=== PATIENT | female | born 1990 | race Caucasian/White ===

== ENCOUNTER → 2016-04-18 12:56 | Outpatient (CLI) | payer MEDICAID ==
[~2016-04-18 12:56] MED LIST: IBUPROFEN600 MG PO; MEPERIDINE HCL50 MG PO; PRENATAL COMPLE1 TAB PO
[2016-04-21 09:52] VITALS: BMI 30.9
== END | disposition home or self-care (01) ==
LOC: D.LDO 12:56
DX: Z34.90 Encounter for supervision of normal pregnancy, unspecified, unspecified trimester (principal)

== ENCOUNTER 2016-04-21 04:00 | Inpatient (IN) | payer MEDICAID ==
[~2016-04-21] VITALS: Ht 163.8 cm; Wt 83.0 kg
[2016-04-21] MEDS ORDERED: PRENATAL COMPLE1 TAB PO (05:26)
[2016-04-21 05:34] VITALS: BP 118/70; BMI 31.0
[2016-04-21 05:55] LABS: HEMATOCRIT 42.7 % (36.0-48.0); HEMOGLOBIN 14.5 g/dL (12-16); MCH 32.4 pg (26.0-34.0); MCV 95.3 fL (80.0-100.0); MEAN PLATELET VOLUME 10.9 fL (7.4-10.4); RBC 4.48 10x6/uL (4.00-5.40); RDW 13.1 % (11.5-14.5); WBC 10.2 10x3/uL (4.8-10.8)
[2016-04-21 07:02] LABS: APPEARANCE SLT CLOUDY (CLEAR); BACTERIA MANY /hpf (NONE SEEN); BILIRUBIN NEGATIVE (NEGATIVE); COLOR YELLOW (YELLOW); GLUCOSE NEGATIVE (NEGATIVE); KETONE NEGATIVE (NEGATIVE); LEUKOCYTE ESTERASE 1+ (NEGATIVE); MUCUS <1+ /lpf (NONE SEEN); NITRITE NEGATIVE (NEGATIVE); PROTEIN NEGATIVE (NEGATIVE); RED CELLS - URINE RARE /hpf (0-5); UROBILINOGEN NORMAL (NORMAL)
[2016-04-21 09:52] VITALS: Ht 163.8 cm; Wt 83.0 kg
--- NOTE | 2016-04-21 17:27 | NUR ---
PT SITTING UP IN BED. FAMILY MEMBER AT BEDSIDE HOLDING . PT DENIES NEEDS AT THIS TIME. BED LOW. PHONE AND CALL LIGHT IN REACH. SIDE RAILS UP X2.
[2016-04-21 19:07] VITALS: BP 112/57
--- NOTE | 2016-04-21 19:07 | NUR ---
INTO ROOM FOR ASSESSMENT. PT. WITH LAUREN OF ALL EXTREMITIES. STATES PERINEAL AREA WHERE REPAIRS WERE DONE IS BURNING AND ACHING. RATES A 4 OF 10 ON PAIN SCALE. INFORMED PT. OF MEDICATIONS ORDERED. PT. STATES THAT SHE DESIRES MOTRIN AND DEMEROL. FUNDUS FIRM U/2 AND LOCHIA RUBRA MOD. ICE CAP NOTED TO PERINEAL AREA. SALINE LOCK NOTED IN RT WRIST WITHOUT REDNESS NOR EDEMA. BREATH SOUNDS CLEAR AND BOWEL SOUNDS AUDIBLE. INFORMED PT. THAT WOULD RETURN WITH HER PAIN MED AND ALSO GET HER UP TO THE BATHROOM PRIOR TO HER TRANSFER TO A CLEAN ROOM. PT. STATES UNDERSTANDING. FAMILY IN ROOM AT PRESENT.
--- NOTE | 2016-04-21 19:34 | NUR ---
PAIN MEDS GIVEN ORDERED. OFF ORGAN TUNER ELECTRONIC. PT. ASSISTED TO SITTING ON SIDE OF BED. DENIES ANY NUMBNESS IN LOWER EXTREMITIES. PT. STANDING AT SIDE OF BED WITHOUT DIFFICULTY. AMBULATED TO BATHROOM WITHOUT ASSISTANCE. VOIDED AND SELF NOEMI CARE DONE AFTER INSTRUCTIONS. INSTRUCTED ON USE OF EPIFOAM, DERMOPLAST AND TUCKS AND PT. OPTED TO USE ALL. ASSISTED WITH USE. NOEIM PAD AND PANTIES APPLIED. TO WHEELCHAIR AND TRANSFERRED TO [facility].
--- NOTE | 2016-04-21 19:50 | NUR ---
TRANSFERRED INTO ROOM 1278. ORIENTED TO ROOM, CALL SYSTEM, BED CONTROLS AND TEMP. CONTROL. PT. STATES UNDERSTANDING TO ALL. FOB AND FAMILY IN ROOM. PT. COMMENTS THAT BED IS "MUCH SOFTER". FUNDUS FIRM AND LOCHIA RUBRA MOD. SIDE RAILS UP X 2. CALL LIGHT WITHIN REACH. INFORMED PT. WOULD BRING ICE FOR PERINEAL AREA AND EXTRA PILLOWS THAT WERE REQUESTED UPON RETURN TO ROOM .
--- NOTE | 2016-04-21 19:55 | NUR ---
ICE WATER, EXTRA PILLOWS AND ICE CAP FOR PERINEAL AREA PROVIDED. ASSISTED PT. TO POSITION WITH PILLOWS. DENIES FURTHER NEEDS.
--- NOTE | 2016-04-21 20:20 | NUR ---
INTO ROOM TO CHECK ON PT. STATES PERINEAL AREA STILL "FRAZIER SOME". VISITOR AT BEDSIDE HOLDING INFANT.
--- NOTE | 2016-04-21 20:40 | NUR ---
PT. REPORTS THAT DISCOMFORT HAS IMPROVED AND RATES A 2 OF 10 ON PAIN SCALE. HOLDING INFANT AT PRESENT.
--- NOTE | 2016-04-21 22:05 | NUR ---
AT PRESENT. TALKING ON PHONE AND FAMILY IN ROOM. DENIES ANY NEEDS AT THIS TIME.
--- NOTE | 2016-04-21 23:50 | NUR ---
LYING ON BACK WITH HOB AT 30 DEGREES HOLDING . SLEEPING AT PRESENT. ICE WATER PROVIDED. PT. DENIES ANY NEEDS. FOB SLEEPING ON SOFA.
--- NOTE | 2016-04-22 00:45 | NUR ---
AT PRESENT. ICE CAP PROVIDED FOR PERINEAL AREA. FOB LYING ON SOFA. PT. DENIES ANY FURTHER NEEDS. ROOM TEMP. COLD ALTHOUGH PATIENT KEEPING INFANT WELL WRAPPED IN BLANKET.
--- NOTE | 2016-04-22 02:45 | NUR ---
HOLDING . PAIN MED GIVEN ORDERED FOR PAIN PT RATES A 6 OF 10 ON PAIN SCALE. STATES IT IS CRAMPING AND PERINEAL DISCOMFORT. FUNDUS FIRM U/3 AND LOCHIA RUBRA MOD. ICE WATER PROVIDED. FOB SLEEPING ON SOFA.
--- NOTE | 2016-04-22 03:32 | NUR ---
INFANT TO ROOM TO BREASTFEED. BREASTCREAM PROVIDED. REPORTS PAIN 3 OF 10 ON PAIN SCALE.
[2016-04-22 05:14] LABS: RAPID PLASMA REAGIN Non Reactive (Non Reactive)
--- NOTE | 2016-04-22 06:05 | NUR ---
NBN IN ROOM TO TAKE TO NURSERY. PT. AWAKE AND ORIENTED.
[2016-04-22 06:44] LABS: HEMOGLOBIN 13.8 g/dL (12-16); MCH 32.1 pg (26.0-34.0); MCHC 33.7 g/dL (31.0-37.0); MCV 95.3 fL (80.0-100.0); MEAN PLATELET VOLUME 10.6 fL (7.4-10.4); RBC 4.3 10x6/uL (4.00-5.40); RDW 13.1 % (11.5-14.5); WBC 12.6 10x3/uL (4.8-10.8)
--- NOTE | 2016-04-22 07:12 | OP ---
PATIENT NAME: MAYA GALLEGOS MEDICAL RECORD: [id number] :92 LOCATION:[facility] [id number] ADMISSION DATE:04/21/16 SURGEON: BASSAM GÓMEZ MD DATE OF OPERATION: 04/21/2016 Delivery Note The patient pushed to +3 to +4 station. A vacuum was applied to the vertex. Infant was then delivered via gentle traction on the vertex. Shoulder dystocia was encountered and resolved using suprapubic pressure and cutting by midline episiotomy. was thoroughly suctioned, cord doubly clamped and ligated, and the infant handed to the awaiting nursery personnel. Spontaneous delivery of intact-appearing placenta. Uterus manually explored. Episiotomy repaired using 2-0 chromic suture. Delivery was under epidural anesthesia. weighed 9 pounds 10 ounces. Apgars 8 and 9. was moving all extremities well post-delivery. ESTIMATED BLOOD LOSS: 400 cc. COMPLICATIONS: Shoulder dystocia with no sequelae. TRANSINT:[id number] Voice Confirmation ID: [id number] DOCUMENT ID: [id number] BASSAM GÓMEZ MD at 0712 CC: [id number] DICTATION DATE: 04/21/16 1613 COUNTERINTELLIGENCE/HUMINT SPECIALIST: 04/21/162003 ADM IN [facility] [address] [place] [address]
--- NOTE | 2016-04-22 07:30 | NUR ---
PATIENT IS SITTING UP IN HER BED, HOB IN HI FOWLERS. SHE IS CHANGING HER INFANTS DIAPER WITH THE NURSERY NURSE AT THE BEDSIDE. WHEN THEY WERE FINISHED, WE DISCUSSED HER BLEEDING (SMALL TO MODERATE) SHE STATES THAT SHE HAS CHANGED HER PERIPAD 2 OR 3 TIMES THROUGHOUT THE NIGHT. DENIES PASSING CLOTS. HER FF, MIDLINE. HER PERICARE PRODUCTS ARE IN THE RESTROOM, SHE DENIES QUESTIONS ABOUT HER CARE.
--- NOTE | 2016-04-22 08:10 | NUR ---
PATIENT REQUESTS HER DEMEROL AND IBUPROPHEN FOR PAIN THAT SHE IS RATING A 6 TO HER PERIMEUM AND ABDOMINAL CRAMPING. GIVEN. OFFERED TOWELS AND SUPPLIES FOR A SHOWER. SHE DENIED WANTING THEM, SHE WOULD LIKE TO WAIT UNTIL GOING HOME TO SHOWER. ENCOURAGED HER TO LET ME KNOW IF SHE CHANGES HER MIND. VERBALIZED UNDERSTANDING. DENIED NEEDING ANY PERSONAL CARE SUPPLIES AT THIS TIME.
[2016-04-22] MEDS ORDERED: IBUPROFEN600 MG PO (10:00)
[2016-04-22] MEDS ORDERED: MEPERIDINE HCL50 MG PO (10:00)
--- NOTE | 2016-04-22 10:46 | NUR ---
PATIENT RESTING IN HER BED, SEMI FOWLERS. SHE HAS HER BABY NESTLED AGAINST HER BREAST. HE IS SLEEPING. DISCUSSED WAYS TO MAKE HIM UNCOMFORTABLE TO ENCOURAGE HIM TO SUCKLE. SHE STATES THAT HER PERINEAL PAIN REMAINS A 5. SHE STATE SHTAT SHE IS USING HER BETADINE WASH, TUCKS AND DERMABLAST. STATES THAT SHE FEELS THE EPIFOAM WAS BURNING AND SHE DECLINES USING IT ANY LONGER. SHE DENIES NEEDS AT THIS TIME. FOB IS AT THE BEDISDE. MONITORING.
--- NOTE | 2016-04-22 12:13 | NUR ---
PATIENT SITTING UP IN HER BED HER INFANT. SHE IS RATING HER PERINEAL PAIN A 5 STILL AND REQUESTS PAIN MEDICATION AVAILABLE. SHE DENIES OTHER NEEDS. SHE HAS BEEN UP AROUND HER ROOM TO THE RESTROOM. FOB AT THE BEDSIDE, THEY ARE TALKING AND FILLING OUT THE BABY'S PAPERWORK. THEY EXPECT TO GO HOME THIS EVENING. SHE HAS EATEN HER LUNCH. MONITORING.
--- NOTE | 2016-04-22 16:49 | NUR ---
DISCUSSED AT LENGTH HER DISCHARGE INSTRUCTIONS. INCLUDED WOUND CARE, PELVIC REST, MEDICATIONS, FOLLOW UP APPT AND SIGNS OF INFECTION. INSTRUCTED HER TO CALL THE MD OFFICE AT THE FIRST SIGN OF INFECTION. MELANY AND NEO AT THE BEDSIDE. ENCOURAGED HER TO GET PLENTY OF REST AND BE ALERT FOR SIGNS OF DEPRESSION. PRESCRIPTIONS GIVEN. THEY ARE GOING HOME TO [place]. DEMEROL GIVEN FOR ANTICIPATION OF A LONG DRIVE.
== END 2016-04-22 17:35 | disposition home or self-care (01) | DRG 775 ==
LOC: D.LD 04:00
PROVIDERS: ADMIT Obstetrics & Gynecology
PROC: 0W8NXZZ Division of Female Perineum, External Approach (ICD-10-PCS; principal; 2016-04-21)
PROC: 10D07Z6 Extraction of Products of Conception, Vacuum, Via Natural or Artificial Opening (ICD-10-PCS; 2016-04-21)
PROC: 3E033VJ Introduction of Other Hormone into Peripheral Vein, Percutaneous Approach (ICD-10-PCS; 2016-04-21)
DX: O66.0 Obstructed labor due to shoulder dystocia (principal); Z3A.40 40 weeks gestation of pregnancy; Z37.0 Single live birth; Z87.891 Personal history of nicotine dependence

== ENCOUNTER 2020-09-18 12:51 | Outpatient (CLI) | payer MEDICAID ==
[2020-04-06 06:02] VITALS: BMI 21.1
[~2020-09-18 12:51] MED LIST changes: +MACROBID100 MG PO; +PEPCID AC20 MG PO; +PHENERGAN25 M1 PO; +REGLAN5 MG PO; +UNISOM SLEEP AI25 MG PO; +VITAMIN B-625 MG PO
== END 2020-09-18 13:30 | disposition home or self-care (01) ==
LOC: D.LDO 12:51
PROVIDERS: ATTEND Obstetrics & Gynecology
DX: O36.5990 Maternal care for other known or suspected poor fetal growth, unspecified trimester, not applicable or unspecified (principal)